=== PATIENT | female | born 1955 | race African-American/Black ===

== ENCOUNTER → 2017-01-03 | Outpatient (CLI) | payer OTHER ==
[~2017-01-03] MED LIST: ALB/IPRATROPIUM/1 E1 INH; ALBUTEROL 0.5ML INH; DOXYCYCLINE HY100 M3 PO; LOTENSIN20 MG PO; NORVASC10 MG PO; PREDNISONE PO; SYMBICORT INH
== END | disposition home or self-care (01) ==
LOC: CRC 09:53
DX: J44.9 Chronic obstructive pulmonary disease, unspecified (principal)
CPT/HCPCS: 94060; 94726; 94729